=== PATIENT | female | born 1945 | race Caucasian/White ===

== ENCOUNTER 2017-04-28 14:50 | Emergency (ER) | payer OTHER ==
[~2017-04-28] VITALS: Ht 165.1 cm; Wt 73.3 kg
[~2017-04-28 14:50] MED LIST: AMLODIPINE BESYL5 MG PO; CITALOPRAM HBR20 MG PO; LISINOPRIL10 MG PO; PERCOCET 5/31 TABLET PO
[2017-04-28 15:56] LABS: CHLORIDE 106 mEq/L (99-109); POTASSIUM 3.9 mEq/L (3.7-5.4); SODIUM 142 mEq/L (136-147)
[2017-04-28 15:58] LABS: GLUCOSE 93 mg/dL (70-99)
[2017-04-28 15:59] LABS: ANION GAP 11 MEQ/L (2-14)
[2017-04-28 16:01] LABS: GFR ESTIMATE (CALCULATED) > 59 mL/min/
[2017-04-28 16:02] LABS: UREA NITROGEN (BUN) 18 mg/dL (9-23)
[2017-04-28] MEDS ORDERED: POLYTRIM EYE DR10 ML LEFT EYE (19:27)
[2017-04-28] MEDS ORDERED: HYDROCHLOROTH12.5 M3 PO (19:27)
[2017-04-28] MEDS ORDERED: FENOFIBRATE48 MG PO (19:27)
[2017-04-28] MEDS ORDERED: LABETALOL HCL100 MG PO (19:27)
[2017-04-28] MEDS ORDERED: BYSTOLIC10 MG PO (19:27)
[2017-04-28] MEDS ORDERED: COZAAR100 MG PO (19:27)
[2017-04-28] MEDS ORDERED: ASPIR 8181 M1 PO (19:28)
[2017-04-28] MEDS ORDERED: DUREZOL 0.100 DROP/5 LEFT EYE (19:28)
[2017-04-28] MEDS ORDERED: B COMPLEX #11 EACH PO (19:28)
[2017-04-28 20:54] VITALS: BP 177/91
== END 2017-04-28 20:54 | disposition home or self-care (01) ==
LOC: EME 14:50 → EDOF 16:14 → EME 16:14 → EDOF 20:54
PROVIDERS: Emergency Medicine
DX: I10 Essential (primary) hypertension (principal); R51 Headache; I25.10 Atherosclerotic heart disease of native coronary artery without angina pectoris; Z95.1 Presence of aortocoronary bypass graft; Z90.710 Acquired absence of both cervix and uterus; Z90.49 Acquired absence of other specified parts of digestive tract; Z87.891 Personal history of nicotine dependence
CPT/HCPCS: 70450; 80048; 81003; 93005; 99281; 99285